=== PATIENT | female | born 1970 | race Caucasian/White ===

== ENCOUNTER → 2017-11-30 | Outpatient (REF) ==
[~2017-11-30] MED LIST: ALBU8.5H IH; AZIT-1 PO; CHOL500016 PO; FLUT16SP19 NS; GUAI600T57 PO; HYDR1CAP PO; HYDR5SYR2 PO; MULT-1121 PO; PROM5SYR PO; PSEU120T9 PO; VITA150T2 PO
[2017-11-30 12:27] LABS: LDL CHOLESTEROL 91 mg/dl
== END ==
DX: Z02.9 Encounter for administrative examinations, unspecified (principal)

== ENCOUNTER → 2017-12-11 | Outpatient (CLI) | payer OTHER ==
--- NOTE | 2017-12-12 11:45 | RADIOLOGY IMAGING REPORT ---
FACILITY: [facility] PATIENT NAME: CHAI EVANGELISTA : [id number] MR: [id number] V: [id number] EXAM DATE: ORDERING PHYSICIAN: MARIS MENDENHALL TECHNOLOGIST: Iwona Steen PROCEDURE:BILATERAL DIGITAL SCREENING MAMMOGRAM WITH CAD ASSISTED INTERPRETATION & 3D TOMOSYNTHESIS COMPARISON:Prior mammograms 01/09/17, 11/30/16, 11/30/15, 07/30/14. INDICATIONS:SCREENING FINDINGS: Mildly heterogeneous fibroglandular tissue is seen throughout the breasts. The parenchymal pattern has remained stable allowing for difference in mammographic technique & patient positioning. There is no evidence of malignant appearing mass, malignant appearing calcifications or other secondary sign of malignancy in either breast. DIAGNOSTIC CATEGORY 1--NEGATIVE. RECOMMENDATIONS: ROUTINE MAMMOGRAM AND CLINICAL EVALUATION. IMPRESSION: BIRADS 1: Negative No significant abnormality is seen. Dictated by: Salome Marcos M.D. on 12/11/2017 at 10:53 Transcribed by: LILLIE on 12/11/2017 at 11:22 Approved by: Salome Marcos M.D. on 12/12/2017 at 11:44 [facility]
== END ==
LOC: MAMO 00:25
PROVIDERS: ATTEND Obstetrics & Gynecology
DX: Z12.31 Encounter for screening mammogram for malignant neoplasm of breast (principal)
CPT/HCPCS: 77063; 77067

== ENCOUNTER → 2017-12-26 | Outpatient (CLI) | payer OTHER | LOC: LAB 18:09 | PROVIDERS: ATTEND Obstetrics & Gynecology | DX: R30.0 Dysuria (principal); R35.0 Frequency of micturition; R10.2 Pelvic and perineal pain; R82.99 Other abnormal findings in urine | CPT/HCPCS: 81001; 87088 ==

== ENCOUNTER → 2018-11-09 | Outpatient (REF) ==
[2018-11-09 11:53] LABS: LDL CHOLESTEROL 77 mg/dl
== END ==
DX: Z02.9 Encounter for administrative examinations, unspecified (principal)

== ENCOUNTER → 2018-12-10 | Outpatient (REF) | payer OTHER | LOC: ZZSENDIN 11:02 | PROVIDERS: ATTEND Obstetrics & Gynecology | DX: N39.0 Urinary tract infection, site not specified (principal) | CPT/HCPCS: 87088 ==

== ENCOUNTER → 2019-01-17 | Outpatient (CLI) | payer OTHER ==
--- NOTE | 2019-01-20 14:05 | RADIOLOGY IMAGING REPORT ---
[place] [facility] [place] NAME: CHAI EVANGELISTA : [id number] MR: [id number] V: [id number] EXAM DATE: ORDERING PHYSICIAN: MARIS MENDENHALL TECHNOLOGIST: Iwona Steen PROCEDURE: BILATERAL DIGITAL SCREENING MAMMOGRAM WITH CAD ASSISTED INTERPRETATION & 3D TOMOSYNTHESIS REASON FOR STUDY: Screening. FAMILY HISTORY OF BREAST CANCER: None. BREAST PROCEDURES/TREATMENTS: None. COMPARISON: 12/11/17, 01/09/17, 11/30/16, 11/30/15, 07/30/14. VIEWS OBTAINED: 2D & 3D full field CC & MLO. BREAST DENSITY: There are scattered areas of fibroglandular density throughout the breasts. MAMMOGRAM FINDINGS: Most of the parenchymal pattern has remained stable allowing for difference in mammographic technique & patient positioning. In the upper portion of the Right breast on the Right MLO view in the posterior depth there is a rounded nodular area not appreciated on the prior mammograms. A Right XCC view and Right breast Ultrasound recommended for further evaluation. IMPRESSION: BIRADS 0: Incomplete. A Right XCC view and a Right breast Ultrasound recommended for further evaluation. DIAGNOSTIC CATEGORY 0--INCOMPLETE: NEED ADDITIONAL IMAGING EVALUATION. RECOMMENDATIONS: ADDITIONAL MAMMOGRAPHIC VIEWS REQUIRED: RIGHT BREAST. ULTRASOUND: RIGHT BREAST. Dictated by: Salome Marcos M.D. on 01/20/2019 at 10:10 Transcribed by: LILLIE on 01/20/2019 at 10:50 Approved by: Salome Marcos M.D. on 01/20/2019 at 14:04 [facility]
== END ==
LOC: MAMO 15:22
PROVIDERS: ATTEND Obstetrics & Gynecology
DX: R92.2 Inconclusive mammogram (principal)
CPT/HCPCS: 77063; 77067

== ENCOUNTER → 2019-01-22 | Outpatient (CLI) | payer OTHER ==
--- NOTE | 2019-01-23 10:49 | RADIOLOGY IMAGING REPORT ---
[place] [facility] [place] NAME: CHAI EVANGELISTA : [id number] MR: [id number] V: [id number] EXAM DATE: ORDERING PHYSICIAN: MARIS MENDENHALL TECHNOLOGIST: Delia Hair RT(R)(CT) PROCEDURE:RIGHT DIGITAL MAMMOGRAM DIAGNOSTIC WITH CAD ASSISTED INTERPRETATION & 3D TOMOSYNTHESIS REASON FOR STUDY: Further evaluation FAMILY HISTORY OF BREAST CANCER: None BREAST PROCEDURES/TREATMENTS: None COMPARISON STUDIES: 12/11/17, 01/09/17, 11/30/16, 11/30/15, 07/30/14, 01/17/19 MAMMOGRAM VIEWS OBTAINED: Bilateral 2D & 3D full field Right XCC view BREAST DENSITY: There are scattered areas of fibroglandular density throughout the breasts. MAMMOGRAM FINDINGS: The small nodular density seen in the far posterior upper portion Right breast on the recent MLO view could not be identified on the Right XCC view. The Right breast Ultrasound was performed. ULTRASOUND AREA SCANNED: 10-12 position Right breast ULTRASOUND FINDINGS: There is a small fatty replaced lymph node in the 10 o'clock position Right breast 7cm from the nipple measuring 8mm in greatest dimension. In the 11 o'clock position of the Right breast 7cm from the nipple there is a small 3mm cyst. This may account for the mammographic findings. DIAGNOSTIC CATEGORY 2--BENIGN FINDING. RECOMMENDATIONS: ROUTINE MAMMOGRAM AND CLINICAL EVALUATION. IMPRESSION: BIRADS 2: Benign finding. Dictated by: Salome Marcos M.D. on 01/22/2019 at 16:13 [facility] Approved by: Salome Marcos M.D. on 01/23/2019 at 10:48
--- NOTE | 2019-01-23 10:49 | RADIOLOGY IMAGING REPORT ---
FACILITY: [facility] PATIENT NAME: CHAI EVANGELISTA : [id number] MR: [id number] V: [id number] EXAM DATE: ORDERING PHYSICIAN: MARIS MENDENHALL TECHNOLOGIST: Iwona Steen PROCEDURE:RIGHT DIGITAL MAMMOGRAM DIAGNOSTIC WITH CAD ASSISTED INTERPRETATION & 3D TOMOSYNTHESIS REASON FOR STUDY: Further evaluation FAMILY HISTORY OF BREAST CANCER: None BREAST PROCEDURES/TREATMENTS: None COMPARISON STUDIES: 12/11/17, 01/09/17, 11/30/16, 11/30/15, 07/30/14, 01/17/19 MAMMOGRAM VIEWS OBTAINED: Bilateral 2D & 3D full field Right XCC view BREAST DENSITY: There are scattered areas of fibroglandular density throughout the breasts. MAMMOGRAM FINDINGS: The small nodular density seen in the far posterior upper portion Right breast on the recent MLO view could not be identified on the Right XCC view. The Right breast Ultrasound was performed. ULTRASOUND AREA SCANNED: 10-12 position Right breast ULTRASOUND FINDINGS: There is a small fatty replaced lymph node in the 10 o'clock position Right breast 7cm from the nipple measuring 8mm in greatest dimension. In the 11 o'clock position of the Right breast 7cm from the nipple there is a small 3mm cyst. This may account for the mammographic findings. DIAGNOSTIC CATEGORY 2--BENIGN FINDING. RECOMMENDATIONS: ROUTINE MAMMOGRAM AND CLINICAL EVALUATION. IMPRESSION: BIRADS 2: Benign finding. Dictated by: Salome Marcos M.D. on 01/22/2019 at 16:13 Transcribed by: DANIEL on 01/23/2019 at 8:58 Approved by: Salome Marcos M.D. on 01/23/2019 at 10:48 [facility]
== END ==
LOC: MAMO 13:24
PROVIDERS: ATTEND Obstetrics & Gynecology
DX: N60.01 Solitary cyst of right breast (principal)
CPT/HCPCS: 77061; 77065

== ENCOUNTER 2019-02-09 23:42 | Inpatient (IN) | payer OTHER ==
[~2019-02-09] VITALS: Ht 167.6 cm; Wt 72.6 kg
[2019-02-09] MEDS ORDERED: NS(*) 0.9% 1000 ML BAG 1,000 ML IV ONE ×2 (23:45→23:55)
[2019-02-09] MEDS ORDERED: ONDANSETRON 4 MG/2 ML VIAL IVP ONE (23:45)
[2019-02-09 23:53] LABS: PLATELET COUNT, AUTOMATED 398 K/uL (150-450)
--- NOTE | 2019-02-09 23:54 | ER Report ---
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 PT became near syncopal and rapid response was called. Pt c/o of epigastriac pain, nausea, vomiting and tingling to hands and feet. Pt denies chest pain. Pt statse she had a normal bm earlier today. Pt has hx of multiple abd surgeries in the past. REVIEW OF SYSTEMS: Constitutional: No fever, no chills. Eyes: No discharge. ENT: No sore throat. Cardiovascular: No chest pain, no palpitations. Respiratory: No cough, no shortness of breath. Gastrointestinal: + abdominal pain, +nausea, + vomiting. Genitourinary: No hematuria. Musculoskeletal: No back pain. Skin: No rashes. Neurological: No headache, + tingling to hands and feet b/l Allergies: Coded Allergies: clindamycin (Verified Allergy, Intermediate, MOUTH SWELLING, 08/07/17) Home Meds Reported Medications Multivitamin With Minerals (DAILY VITAMIN FORMULA-MINERALS) 1 Each Tablet, 1 TAB PO 10/05/17 Vitamin B Complex & Vit C No.4 (SUPER B COMPLEX) 150 Mg Tablet, 1 TAB PO DAILY 10/05/17 Cholecalciferol (Vitamin D3) (VITAMIN D3) 5,000 Unit Capsule, 1 CAPSULE PO DAILY, CAPSULE 10/05/17 Past Medical/Surgical History Pmhx: cva uti Pshx: bladder suspension, hysterectomy, rolando, tonsilectomy Reviewed Nurses Notes: Yes Old Medical Records Reviewed: Yes Smoking Status: Never Smoker Hx Alcohol Use: Yes (one a week) Constitutional Vital Sign - Last 24 Hours 02/09/19 23:46 Temp 98.6 Pulse 81 Resp 16 B/P (MAP) 106/73 Pulse Ox 95 O2 Delivery Room Air Physical Exam General Appearance: The patient is alert, has no immediate need for airway protection, + clammy Eyes: Pupils equal and round no pallor or injection, EOMI ENT: no pharyngeal erythema or exudates, Mucous membranes are moist Respiratory: There are no retractions, lungs are clear to auscultation. Cardiovascular: Regular rate and rhythm. pulses are equal and symmetrical Gastrointestinal: Abdomen is soft with epigastric tenderness, no masses, bowel sounds decreased, no guarding, no rigidity or rebound Neurological: Cranial nerves II-XII grossly intact, no sensory or motor loss Skin: Warm and dry, no rashes. Musculoskeletal: Neck is supple non tender, no vertebral tenderness Extremities are non tender, non swollen and have full range of motion. DIFFERENTIAL DIAGNOSIS: After history and physical exam differential diagnosis was considered for gastroenteritis, sbo, psbo, perforation, vasovagal syncope, pancreatitis Medical Decision Making Data Points Result Diagram: 02/09/193 02/09/19 2333 Laboratory Hematology Test 02/09/19 23:33 Red Blood Count 5.98 M/uL (4.17-5.56) Mean Corpuscular Volume 82.3 fL (80.0-96.0) Mean Corpuscular Hemoglobin 28.1 pg (26.0-33.0) Mean Corpuscular Hemoglobin Concent 34.2 g/dL (32.0-36.0) Red Cell Distribution Width 13.7 % (11.5-14.5) Mean Platelet Volume 6.5 fL (7.2-11.1) Neutrophils (%) (Auto) 53.3 % (39.4-72.5) Lymphocytes (%) (Auto) 38.1 % (17.6-49.6) Monocytes (%) (Auto) 5.5 % (4.1-12.4) Eosinophils (%) (Auto) 2.4 % (0.4-6.7) Basophils (%) (Auto) 0.7 % (0.3-1.4) Nucleated RBC Relative Count (auto) 0.1 /100WBC Neutrophils # (Auto) 5.4 K/uL (2.0-7.4) Lymphocytes # (Auto) 3.8 K/uL (1.3-3.6) Monocytes # (Auto) 0.5 K/uL (0.3-1.0) Eosinophils # (Auto) 0.2 K/uL (0.0-0.5) Basophils # (Auto) 0.1 K/uL (0.0-0.1) Nucleated RBC Absolute Count (auto) 0.01 K/uL Sodium Level 142 mmol/L (137-145) Potassium Level 3.5 mmol/L (3.5-5.0) Chloride Level 105 mmol/L (98-107) Carbon Dioxide Level 19 mmol/L (22-31) Blood Urea Nitrogen 16 mg/dl (7-18) Creatinine 0.80 mg/dl (0.52-1.04) Glomerular Filtration Rate Calc > 60.0 Random Glucose 107 mg/dl (75-110) Calcium Level 9.7 mg/dl (8.4-10.2) Total Bilirubin 0.7 mg/dl (0.2-1.3) Aspartate Amino Transf (AST/SGOT) 49 U/L (0-35) Alanine Aminotransferase (ALT/SGPT) 49 U/L (0-56) Alkaline Phosphatase 73 U/L (0-126) Troponin I < 0.012 ng/ml Total Protein 7.9 g/dl (6.3-8.2) Albumin 4.8 g/dl (3.5-5.0) Lipase 5668 U/L (23-300) Helicobacter pylori IgG Antibody Negative (NEGATIVE) Chemistry Test 02/09/19 23:33 White Blood Count 10.0 k/uL (4.5-11.0) Red Blood Count 5.98 M/uL (4.17-5.56) Hemoglobin 16.8 g/dL (12.0-16.0) Hematocrit 49.2 % (34.0-47.0) Mean Corpuscular Volume 82.3 fL (80.0-96.0) Mean Corpuscular Hemoglobin 28.1 pg (26.0-33.0) Mean Corpuscular Hemoglobin Concent 34.2 g/dL (32.0-36.0) Red Cell Distribution Width 13.7 % (11.5-14.5) Platelet Count 398 K/uL (150-450) Mean Platelet Volume 6.5 fL (7.2-11.1) Neutrophils (%) (Auto) 53.3 % (39.4-72.5) Lymphocytes (%) (Auto) 38.1 % (17.6-49.6) Monocytes (%) (Auto) 5.5 % (4.1-12.4) Eosinophils (%) (Auto) 2.4 % (0.4-6.7) Basophils (%) (Auto) 0.7 % (0.3-1.4) Nucleated RBC Relative Count (auto) 0.1 /100WBC Neutrophils # (Auto) 5.4 K/uL (2.0-7.4) Lymphocytes # (Auto) 3.8 K/uL (1.3-3.6) Monocytes # (Auto) 0.5 K/uL (0.3-1.0) Eosinophils # (Auto) 0.2 K/uL (0.0-0.5) Basophils # (Auto) 0.1 K/uL (0.0-0.1) Nucleated RBC Absolute Count (auto) 0.01 K/uL Glomerular Filtration Rate Calc > 60.0 Calcium Level 9.7 mg/dl (8.4-10.2) Total Bilirubin 0.7 mg/dl (0.2-1.3) Aspartate Amino Transf (AST/SGOT) 49 U/L (0-35) Alanine Aminotransferase (ALT/SGPT) 49 U/L (0-56) Alkaline Phosphatase 73 U/L (0-126) Troponin I < 0.012 ng/ml Total Protein 7.9 g/dl (6.3-8.2) Albumin 4.8 g/dl (3.5-5.0) Lipase 5668 U/L (23-300) Helicobacter pylori IgG Antibody Negative (NEGATIVE) EKG/Imaging EKG Interpretation Sinus arrhythmia @ 80 with intermitent junctional rhythm ED Course/Re-evaluation Clinical Indication for ER IV: Hydration, IV Access ED Course 02/10/2019 1:09:00 am Pts labs show pancreatitis. On ct pancreas appears normal but pt has signs of enteritis. Pt looks more comfortable. Fentany took away her pain but pt did have hives form after she was given zofran and f entanyl. Treated hives with benadryl. 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 Will speak with hospitalist for admission and supervisor statement clerks for pts floor requestion. 02/10/2019 1:19:19 am Spoke with Hospitalist who accepts pt and supervisor statement clerks working on bed request. Decision to Disposition Date: Feb 10, 2019 Decision to Disposition Time: 01:10 Depart Departure Latest Vital Signs Vital Signs Date Time Temp Pulse Resp B/P (MAP) Pulse Ox O2 Delivery O2 Flow Rate FiO2 02/09/19 23:46 98.6 81 16 106/73 95 Room Air Impression: Primary Impression: Pancreatitis Additional Impression: Enteritis Condition: Condition Unchanged Disposition: Admitted from ER Referrals: MARIS MENDENHALL MD (PCP) Problem Qualifiers Primary Impression: Pancreatitis Chronicity: acute Pancreatitis type: unspecified pancreatitis type Acute pancreatitis complication: no infection or necrosis Qualified Codes: K85.90 - Acute pancreatitis without necrosis or infection, unspecified RENA FRANCES DO Feb 09, 2019 23:54
[2019-02-09] MEDS ORDERED: fentaNYL CITR 100 MCG/2 ML AMP IVP ONE (23:55)
[2019-02-09] MEDS ORDERED: IOPAMIDOL 76% 100 ML INFUS BTL 100 ML ONE (23:58)
[2019-02-10] MEDS ORDERED: diphenhydrAMINE 50 MG/ML VIAL IVP ONE (00:10)
--- NOTE | 2019-02-10 00:39 | EKG ---
FACILITY: [facility] [place] PATIENT NAME: CHAI EVANGELISTA : [id number] MR: [id number] V: [id number] EXAM DATE: ORDERING PHYSICIAN: RENA FRANCES TECHNOLOGIST: EITAN Test Reason : SYNCOPE Blood Pressure : / mmHG Vent. Rate : 078 BPM Atrial Rate : 078 BPM P-R Int : 136 ms QRS Dur : 094 ms QT Int : 410 ms P-R-T Axes : 000 242 067 degrees QTc Int : 467 ms Sinus rhythm with marked sinus arrhythmia Otherwise normal ECG No previous ECGs available Confirmed by Jaime Colby ([id number]) on 02/10/2019 6:35:44 AM Referred By: Confirmed By:Jaime Baez
--- NOTE | 2019-02-10 00:49 | RADIOLOGY IMAGING REPORT ---
[place] [facility] [place] NAME: Tatiana Ames : 1970 MR: [id number] V: [id number] EXAM DATE: [id number] ORDERING PHYSICIAN: RENA FRANCES TECHNOLOGIST: Location: [facility] Patient: Tatiana Ames : 1970 Visit/Account:[id number] Date of Sevice: 02/09/2019 CT ABDOMEN PELVIS W/ CON HISTORY:epigastric abd pain TECHNIQUE: CT abdomen and pelvis with intravenous contrast. Contiguous axial images of the abdomen and pelvis was performed from the lung bases to the symphysis pubis. One of the following dose optimization techniques was utilized in the performance of this exam: Autom ated exposure control; adjustment of the mA and/or kV according to the patient's size; or use of an i terative reconstruction technique. Specific details can be referenced in the facility's radiology C T exam operational policy. CONTRAST: 75 cc of Isovue-370 COMPARISON: None. FINDINGS: Visualized lung bases: Negative. Hepatobiliary: Gallbladder is absent. Bile ducts are decompressed Spleen: Negative. Adrenals: Negative. Kidneys/: Negative. Pancreas: Negative. GI: There is marked thickening of the small bowel loops with mild dilation suggesting enteritis. No evidence for obstruction. Fluid is noted in the ascending colon but more solid stool is noted in the remainder of the colon. Appendix is normal. No free fluid or free air. Vessels/spaces/nodes: Negative. Bones/soft tissues: Negative. IMPRESSION: 1. Significant thickening of the small bowel loops with mild dilation suggesting enteritis. No defin ite bowel obstruction, free fluid or free air. 2. Liquid stool is noted in the ascending colon suggesting diarrhea. Report Dictated By: Ez Us MD at 02/10/2019 12:35 AM Report E-Signed By: Ez Us MD at 02/10/2019 12:43 AM WSN:[id number]
--- NOTE | 2019-02-10 01:34 | EKG ---
FACILITY: PATIENT NAME: CHAI EVANGELISTA : [id number] MR: [id number] V: [id number] EXAM DATE: ORDERING PHYSICIAN: RENA FRANCES TECHNOLOGIST: EITAN Test Reason : SYNCOPE Blood Pressure : / mmHG Vent. Rate : 097 BPM Atrial Rate : 097 BPM P-R Int : 156 ms QRS Dur : 086 ms QT Int : 358 ms P-R-T Axes : 072 244 068 degrees QTc Int : 454 ms Normal sinus rhythm Normal ECG When compared with ECG of 09-FEB-2019 23:49, No significant change was found Confirmed by Jaime Colby ([id number]) on 02/10/2019 6:35:54 AM Referred By: Confirmed By:Jaime Baez
[2019-02-10] MEDS ORDERED: NALOXONE HCL 0.4 MG/ML VIAL IVP PRN (02:05)
[2019-02-10] MEDS ORDERED: FLUSH 10 ML SYR IVP PRN (02:05)
[2019-02-10] MEDS ORDERED: PROMETHAZINE 25 MG/ML 1 ML AMP IVP PRN (02:05)
[2019-02-10] MEDS ORDERED: THYR90TA13 PO (02:16)
--- NOTE | 2019-02-10 02:28 | History & Physical ---
History of Present Illness Chief Complaint n/v/abdominal pain History of Present Illness 48F presented with acute onset nausea, vomiting, abdominal pain. PMHx significant for cholecystectomy, hypothyroid. 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 Reported she needed to lie down and had sudden onset of n/v near syncopal episode. Rapid response was called and she was transported to ER. There reported epigastric pain and tenderness as well as continued nausea. Troponin negative, EKG without acute changes. CT showed possible enteritis but otherwise negative, lipase 5900. She was admitted for further management. Reports 1-2 drinks per month, previous cholecystectomy 2009, no fever, chills, nausea before episode tonight. History Problems: (1) Hypothyroid Home Meds Reported Medications Multivitamin With Minerals (DAILY VITAMIN FORMULA-MINERALS) 1 Each Tablet, 1 TAB PO 10/05/17 Vitamin B Complex & Vit C No.4 (SUPER B COMPLEX) 150 Mg Tablet, 1 TAB PO DAILY 10/05/17 Cholecalciferol (Vitamin D3) (VITAMIN D3) 5,000 Unit Capsule, 1 CAPSULE PO DAILY, CAPSULE 10/05/17 Allergies: Coded Allergies: clindamycin (Verified Allergy, Intermediate, MOUTH SWELLING, 08/07/17) Patient History: FH: brain cancer PATERNAL GRANDFATHER FH: depression BROTHER OR SISTER FH: hypertension FATHER, Age:77 MOTHER, Age:76 FH: lung cancer PATERNAL GRANDFATHER FH: myocardial infarction MATERNAL GRANDFATHER FH: renal failure FATHER, Age:77 Graves' disease MOTHER, Age:76 Sanya thyroiditis BROTHER OR SISTER Smoking Status: Never Smoker Hx Alcohol Use: Yes (one a week) Social Drug Use: Never Review of Systems All Systems Reviewed/Normal: Yes, Except as Noted Constitutional: No Fever Neurological: No Confusion, No Weakness Cardiovascular: No Chest Pain Gastrointestinal: Nausea, Vomiting, Abdominal Pain Exam Vital Signs Vital Signs Date Time Temp Pulse Resp B/P (MAP) Pulse Ox O2 Delivery O2 Flow Rate FiO2 02/10/19 00:42 109 25 97 02/10/19 00:30 107/77 (87) 02/09/19 23:46 98.6 Room Air General Appearance: Alert, Awake, No Acute Distress, Afebrile Neuro: No Gross deficits Cardiovascular: Normal Rhythm & Peripheral Pulses Respiratory: No Respiratory Distress GI: Other (epigastric tenderness, + BS ) Extremities: Soft and Non Tender, Warm, Pulses, Perfused Medical Decision Making Data Points Result Diagram: 02/09/19 2333 02/09/19 2333 EKG / Imaging EKG Interpretation NSR Assessment and Plan Problems: (1) Pancreatitis Status: Acute Assessment & Plan: Unclear etiology, previous cholecystectomy, minimal EtOH. Will get US to examine ducts for retained stone, lipids WNL in . Begin LR IV for hydration, PRN IV Dilaudid, Zofran and Promethazine for nausea. NPO with chips and sips. (2) Enteritis Status: Acute Assessment & Plan: Believed to be related to pancreatic inflammation, reports 3 formed stools day of admission (normal is 2). Will monitor and adjust therapy as needed. (3) Hypothyroid Assessment & Plan: She is on armor thyroid, will hold one day and evaluate ability to take PO. Venous Thromboembolism Antithrombotics Is Pt On Any Antithrombotics?: No (early ambulation) Exam Sepsis Risk: No Definite Risk Problem Qualifiers (1) Pancreatitis: Chronicity: acute Pancreatitis type: unspecified pancreatitis type Acute pancreatitis complication: no infection or necrosis Qualified Codes: K85.90 - Acute pancreatitis without necrosis or infection, unspecified MIGUELITO MENA DO Feb 10, 2019 02:28
[2019-02-10] MEDS: LR(*) 1000 ML BAG 1,000 ML IV PRN ×4 (02:44→23:58)
[2019-02-10 02:45] VITALS: BP 120/79
[2019-02-10] MEDS: ONDANSETRON 4 MG/2 ML VIAL IVP PRN ×2 (02:45→21:15)
[2019-02-10] MEDS: HYDROmorphone HCL 2 MG/ML SDV IVP PRN ×4 (02:46→21:09)
--- NOTE | 2019-02-10 10:24 | RADIOLOGY IMAGING REPORT ---
FACILITY: [facility] PATIENT NAME: Tatiana Ames : 1970 MR: [id number] V: [id number] EXAM DATE: ORDERING PHYSICIAN: MIGUELITO FAJARDO TECHNOLOGIST: Location: [facility] Patient: Tatiana Ames : 1970 Visit/Account:[id number] Date of Sevice: 02/10/2019 LIVER HISTORY: ELEVATED LIPASE COMPARISON: CT abdomen and pelvis February 09, 2019 FINDINGS: Gallbladder: Surgically absent Liver: Negative. Common duct: Minimally dilated, six mm diameter. Pancreas: The pancreas is partially obscured by bowel gas. The pancreas appears very prominent altho ugh peripancreatic fluid is not seen Right kidney: Right kidney appears unremarkable measuring 11.2 cm in length Upper abdominal aorta and IVC: Patent. Ascites: None visualized. IMPRESSION: Post surgical changes from a cholecystectomy Common bile duct is mildly dilated at 6 mm Pancreas appears prominent which could be related to pancreatitis as the clinical history suggests Report Dictated By: Salome Marcos MD at 02/10/2019 10:15 AM Report E-Signed By: Salome Marcos MD at 02/10/2019 10:18 AM WSN:[email or web address]
[2019-02-10 10:40] VITALS: BP 118/74
--- NOTE | 2019-02-10 10:56 | Hospitalist Progress Note ---
Subjective Progress Notes Subjective She was admitted with acute pancreatitis. She denies N/V/D. She still has some epigastric tenderness. Patient Complains of: Cardiovascular: No: Chest Pain Respiratory: No: Shortness of Breath Gastrointestinal: Other (abd pain) Physical Exam Vital Signs Date Time Temp Pulse Resp B/P (MAP) Pulse Ox O2 Delivery O2 Flow Rate FiO2 02/10/19 02:55 87 02/10/19 02:45 98.0 102 14 120/79 (93) Nasal Cannula 2.0 Intake and Output 02/10/19 01:02 Intake Total 1000 ml Balance 1000 ml Intake IV Total 1000 ml General Appearance: Alert, Awake, No Acute Distress, Afebrile Neuro: No Gross deficits Cardiovascular: Regular Rate and Rhythm Respiratory: No Respiratory Distress, Clear to Auscultation GI: Other (epigastric pain, soft to palpation) Extremities: Warm, Perfused; No Edema Psych: Alert & Oriented X3, Appropriate Mood & Affect Result Diagram: 02/09/19 2333 02/09/19 2333 Assessment and Plan Problems: (1) Pancreatitis Status: Acute Assessment & Plan: Unclear etiology, previous cholecystectomy, minimal EtOH. Will get US to examine ducts for retained stone, lipids WNL in . Begin LR IV for hydration, PRN IV Dilaudid, Zofran and Promethazine for nausea. NPO with chips and sips. (2) Enteritis Status: Acute Assessment & Plan: Believed to be related to pancreatic inflammation, reports 3 formed stools day of admission (normal is 2). Will monitor and adjust therapy as needed. (3) Hypothyroid Assessment & Plan: She is on armor thyroid, will hold one day and evaluate ability to take PO. Exam Sepsis Risk: No Definite Risk Problem Qualifiers (1) Pancreatitis: Chronicity: acute Pancreatitis type: unspecified pancreatitis type Acute pancreatitis complication: no infection or necrosis Qualified Codes: K85.90 - Acute pancreatitis without necrosis or infection, unspecified PHILIP OSORIOP Feb 10, 2019 10:56
[2019-02-10 15:10] VITALS: BP 93/57
[2019-02-10] MEDS ORDERED: ACETAMINOPHEN(*)1000 MG/100 ML 100 ML IVPB PRN (15:20)
--- NOTE | 2019-02-10 15:30 | Medical Nutrition Therapy ---
Nutrition Anthropometrics Height (Inches): 66.00 Height (Calculated Centimeters: 167.967171 Weight (Pounds): 160 (stated wt) Weight (Calculated Kilograms): 72.575 BMI: 25.8 Daniel Nutrition Score: Adequate Daniel Nutrition Risk Score: 22 Dietary Referral Nutrition Risk Factors: Nutrition Risk Comment: Nutritional Diagnosis Nutritional Risk Acuity 2: Pancreatitis Nutritional Risk Acuity 3: Nausea Nutritional Acuity: 2-Moderate Nutrition Diagnosis: Increased Nutrient Needs Nutrition Etiology: Psychological Issues Nutrition Problem/Etiology/Sym: AEB dx pncreatitis with lipase 5668 Energy Requirement: 1800 (MSJ) Protein Requirement: 79 (1.1gm/kg) Fluid Requirement: 2160 (3ml/kg) Diet Type: NPO (Nothing by Mouth) Nutrition Intervention: Incr diet as tolerated Nutrition Monitoring & Eval Nutrition Goals: Eat 75-100% Meal, Drink > 2 liters/day RD Patient Assessment Time: [address] Assessment Type: RD Assessment Patient Nutrition Acuity: 2-Moderate Follow Up Date: Feb 13, 2019 Nutritional Comment: 7/ Pt admitted with pancretits. Lipase 5668, alb 4.8. pt reporting N/V. pt curretnly NPO. Will cont to monitor. RICK GOLD Feb 10, 2019 15:30
[2019-02-10 18:21] VITALS: BP 113/58
[2019-02-10 20:14] VITALS: BP 150/84
[2019-02-10 22:00] VITALS: BP 124/80
[2019-02-11] VITALS (7 sets, daily range): BP systolic 101–133; BP diastolic 1–88
[2019-02-11 05:28] LABS: PLATELET COUNT, AUTOMATED 218 K/uL (150-450)
[2019-02-11] MEDS: LR(*) 1000 ML BAG 1,000 ML IV PRN (07:39)
[2019-02-11] MEDS: IBUPROFEN 600 MG TAB PO PRN ×2 (13:09→20:23)
--- NOTE | 2019-02-11 15:06 | Hospitalist Progress Note ---
Subjective Progress Notes Subjective Patient reports improvement in pain, she denies N/V. Patient Complains of: Cardiovascular: No: Chest Pain Respiratory: No: Shortness of Breath Physical Exam Vital Signs Date Time Temp Pulse Resp B/P (MAP) Pulse Ox O2 Delivery O2 Flow Rate FiO2 02/11/19 05:37 82 16 112/68 (83) 96 Nasal Cannula 0.5 02/11/19 02:01 98.1 General Appearance: Alert, Awake, No Acute Distress, Afebrile Neuro: No Gross deficits Cardiovascular: Regular Rate and Rhythm Respiratory: No Respiratory Distress, Clear to Auscultation GI: Soft and Non-Tender Extremities: Warm, Perfused; No Edema Psych: Alert & Oriented X3, Appropriate Mood & Affect Result Diagram: 02/11/1951602/11/19516 Assessment and Plan Problems: (1) Pancreatitis Status: Acute Assessment & Plan: Unclear etiology, previous cholecystectomy, minimal EtOH. US shows no stone, but does show some bile duct dilation, lipids WNL. She was placed on LR IV for hydration, PRN IV Dilaudid, Zofran and Promethazine for nausea. Advanced diet from clears this morning to Low Fat diet. Will have pond tender see patient for education for low fat diet. (2) Enteritis Status: Acute Assessment & Plan: Believed to be related to pancreatic inflammation, reports 3 formed stools day of admission (normal is 2). Will monitor and adjust therapy as needed. (3) Hypothyroid Assessment & Plan: She is on armor thyroid, held one day and will now resume. Exam Sepsis Risk: No Definite Risk Problem Qualifiers (1) Pancreatitis: Chronicity: acute Pancreatitis type: unspecified pancreatitis type Acute pancreatitis complication: no infection or necrosis Qualified Codes: K85.90 - Acute pancreatitis without necrosis or infection, unspecified PHILIP OSROIO SPECIAL EDUCATION DIRECTOR Feb 11, 2019 15:06
[2019-02-11] MEDS ORDERED: THYROID PORK 90 MG PO SCH (18:00)
[2019-02-12] MEDS: IBUPROFEN 600 MG TAB PO PRN ×2 (03:06→10:15)
[2019-02-12 03:30] VITALS: BP_SYST 111
[2019-02-12 06:18] LABS: PLATELET COUNT, AUTOMATED 263 K/uL (150-450)
[2019-02-12 09:14] VITALS: BP 124/92
[2019-02-12 13:30] VITALS: BP 126/96
--- NOTE | 2019-02-12 15:01 | Hospitalist Depart ---
Discharge Summary Reason for Hosp/Final Diag: (1) Pancreatitis Status: Acute Hospital Course & Plan: She presented with acute onset of epigastric pain and vomiting. Lipase was 5668 and normalized the next day. No CT evidence of pancreatitis. Unclear etiology, previous cholecystectomy, minimal EtOH. US shows no stone, but does show some mild bile duct dilation, lipids WNL. She was placed on LR IV for hydration, PRN IV Dilaudid, Zofran and Promethazine for nausea. Advanced diet from clears to Low Fat diet. Doing well and ready to go home. She might benefit from a follow up with a GI specialist to see if further evaluation should be done. (2) Enteritis Status: Acute Hospital Course & Plan: On CT, there was thickening of the small bowel loops with mild dilation believed to be related to pancreatic inflammation. She had a one more BM than normal the day of admission. (3) Hypothyroid Hospital Course & Plan: She is on armor thyroid, held one day and will now resume. Departure Weight (Pounds): 160 (stated wt) Result Diagram: 02/12/1955802/12/19558 Item Value Date Time Lipase 5668 U/L H 02/09/192332 Lipase 105 U/L 02/11/19516 Triglycerides Level 64 mg/dl 02/11/19516 Calcium Level 9.7 mg/dl 02/09/192332 Calcium Level 7.9 mg/dl L 02/11/19516 Calcium Level 8.7 mg/dl 02/12/19558 Aspartate Amino Transf (AST/SGOT) 49 U/L H 02/09/192332 Aspartate Amino Transf (AST/SGOT) 36 U/L H 02/11/19516 Aspartate Amino Transf (AST/SGOT) 30 U/L 02/12/19558 Alanine Aminotransferase (ALT/SGPT) 53 U/L 02/12/19558 Alkaline Phosphatase 59 U/L 02/11/19516 Alanine Aminotransferase (ALT/SGPT) 55 U/L 02/11/19516 Alkaline Phosphatase 64 U/L 02/12/19558 Alkaline Phosphatase 73 U/L 02/09/192332 Alanine Aminotransferase (ALT/SGPT) 49 U/L 02/09/192332 Troponin I < 0.012 ng/ml 02/09/192332 Sodium Level 142 mmol/L 02/09/192332 Potassium Level 3.5 mmol/L 02/09/192332 Chloride Level 105 mmol/L 02/09/192332 Carbon Dioxide Level 19 mmol/L L 02/09/192332 Blood Urea Nitrogen 16 mg/dl 02/09/192332 Creatinine 0.80 mg/dl 02/09/192332 Glomerular Filtration Rate Calc > 60.0 02/09/192332 Glomerular Filtration Rate Calc > 60.0 02/11/1917 Blood Urea Nitrogen 13 mg/dl 02/11/19 0517 Creatinine 0.70 mg/dl 02/11/19 0517 Carbon Dioxide Level 22 mmol/L 02/11/19 0517 Carbon Dioxide Level 27 mmol/L 02/12/19 0559 Blood Urea Nitrogen 9 mg/dl 02/12/19 0559 Creatinine 0.70 mg/dl 02/12/19 0559 Glomerular Filtration Rate Calc > 60.0 02/12/19 0559 Random Glucose 123 mg/dl H 02/12/19 0559 Random Glucose 53 mg/dl L 02/11/19 0517 Lipase 111 U/L 02/12/19 0559 Hemoglobin 16.8 g/dL H 02/09/192332 Hemoglobin 12.3 g/dL 02/11/19 0517 Hemoglobin 14.1 g/dL 02/12/19 0559 Platelet Count 398 K/uL 02/09/192332 Platelet Count 218 K/uL 02/11/19 0517 Platelet Count 263 K/uL 02/12/19 0559 Neutrophils (%) (Auto) 53.3 % 02/09/192332 Neutrophils (%) (Auto) 36.7 % L 02/12/19 0559 Neutrophils (%) (Auto) 47.2 % 02/11/19 0517 Lymphocytes (%) (Auto) 38.1 % 02/09/192332 Lymphocytes (%) (Auto) 29.0 % 02/11/19 05 Lymphocytes (%) (Auto) 32.9 % 02/12/19 0559 White Blood Count 10.0 k/uL 02/09/192332 White Blood Count 8.4 k/uL 02/11/1917 White Blood Count 7.0 k/uL 02/12/19 0559 Helicobacter pylori IgG Antibody Negative 02/09/19 2333 Imaging 02/10/19 Liver US - Post surgical changes from a cholecystectomy Common bile duct is mildly dilated at 6 mm Pancreas appears prominent which could be related to pancreatitis as the clinical history suggests 02/09/19 Abd/Pelvis CT - 1. Significant thickening of the small bowel loops with mild dilation suggesting enteritis. No definite bowel obstruction, free fluid or free air. 2. Liquid stool is noted in the ascending colon suggesting diarrhea. Condition: Improved Discharge: Home Discharge Instructions Home Meds Reported Medications Thyroid,Pork (PNEUMATIC DRUM SANDER THYROID) 90 Mg Tablet, 90 MG PO DAILY 02/10/19 Multivitamin With Minerals (DAILY VITAMIN FORMULA-MINERALS) 1 Each Tablet, 1 TAB PO 10/05/17 Vitamin B Complex & Vit C No.4 (SUPER B COMPLEX) 150 Mg Tablet, 1 TAB PO DAILY 10/05/17 Cholecalciferol (Vitamin D3) (VITAMIN D3) 5,000 Unit Capsule, 1 CAPSULE PO DAILY, CAPSULE 10/05/17 Diet: Low Fat Activity: As Tolerated Special Instructions: Go to the ER for recurrence of pain, or nausea and vomiting. Follow up with a live study manager might be helpful in finding an etiology to the pancreatitis Copies to: MARIS MENDENHALL MD ; Venous Thromboembolism Antithrombotics Is Pt On Any Antithrombotics?: No (early ambulation) Problem Qualifiers (1) Pancreatitis: Chronicity: acute Pancreatitis type: unspecified pancreatitis type Acute pancreatitis complication: no infection or necrosis Qualified Codes: K85.90 - Acute pancreatitis without necrosis or infection, unspecified ALAN MACDONALD MD Feb 12, 2019 15:01
== END 2019-02-12 15:37 | disposition home or self-care (01) | DRG 440 ==
LOC: ER 02-10 00:10 → PED 02-10 01:39
PROVIDERS: ADMIT Internal Medicine; ATTEND Internal Medicine
DX: K85.90 Acute pancreatitis without necrosis or infection, unspecified (principal); K52.9 Noninfective gastroenteritis and colitis, unspecified; E03.9 Hypothyroidism, unspecified; Z90.49 Acquired absence of other specified parts of digestive tract; Z88.1 Allergy status to other antibiotic agents; Z90.710 Acquired absence of both cervix and uterus
CPT/HCPCS: 36415; 74177; 76705; 82040; 82247; 82310; 82374; 82435; 82465; 82565; 82947; 83690; 83718; 84075; 84132; 84155; 84295; 84450; 84460; 84478; 84484; 84520; 85025; 86677; 93005; 96361; 96374; 96375; 99285; J0131; J1170; J1200; J2405; J3010; J7030; J7120; Q9967

== ENCOUNTER → 2019-03-19 | Outpatient (CLI) | payer OTHER ==
[~2019-03-19] MED LIST changes: +THYR90TA13 PO
--- NOTE | 2019-03-19 15:31 | RADIOLOGY IMAGING REPORT ---
FACILITY: [facility] [place] PATIENT NAME: Tatiana Ames : 1970 MR: [id number] V: [id number] EXAM DATE: ORDERING PHYSICIAN: FARIDEH LIZAMA TECHNOLOGIST: Location: [facility] Patient: Tatiana Ames : 1970 Visit/Account:[id number] Date of Sevice: 03/19/2019 MR ABDOMEN MRCP W/O CONTRAST HISTORY: Pancreatitis, elevated lipase level, abdomen pain TECHNIQUE: Multiplanar multisequence magnetic resonance imaging of the abdomen without intravenous c ontrast including magnetic resonance cholangiopancreatography (MRCP). CONTRAST: None. COMPARISON: Liver ultrasound February 10, 2019 FINDINGS: Visualized lung bases: Grossly unremarkable. Liver: Negative. Gallbladder: Surgically absent Bile ducts: Nondilated Spleen: Negative. Adrenal glands: Negative. Pancreas: Negative. Kidneys: Negative. Vessels/spaces/nodes: No bulky adenopathy or ascites. Visualized GI: Grossly unremarkable. Bones/soft tissues: Unremarkable. IMPRESSION: Postsurgical changes from a cholecystectomy otherwise unremarkable MRCP without contrast Report Dictated By: Saloem Marcos MD at 03/19/2019 2:25 PM Report E-Signed By: Salome Marcos MD at 03/19/2019 3:23 PM WSN:[id number]
== END ==
LOC: MRI 01:50
PROVIDERS: ATTEND Nurse Practitioner Family
DX: R10.9 Unspecified abdominal pain (principal); K85.90 Acute pancreatitis without necrosis or infection, unspecified; R74.8 Abnormal levels of other serum enzymes
CPT/HCPCS: 74181

== ENCOUNTER 2019-04-03 02:51 | Day surgery (SDC) | payer OTHER ==
[~2019-04-03] VITALS: Ht 167.6 cm; Wt 70.3 kg
[2019-04-03] MEDS ORDERED: PROPOFOL EMUL(*) 10MG/ML 20 ML 40 ML ONE (07:36)
[2019-04-03] MEDS ORDERED: LIDOCAINE MPF 1% 5 ML VIAL ONE (07:36)
[2019-04-03 07:56] VITALS: BP 128/84
[2019-04-03] MEDS ORDERED: NORMOSOL R SOLN(*) 1000 ML BAG 1,000 ML IV PRN (08:00)
[2019-04-03] MEDS ORDERED: LIDOCAINE/SOD BICARB 8.4% SYR ID ONE (08:00)
[2019-04-03 09:23] VITALS: BP 93/53
[2019-04-03 09:45] VITALS: BP 99/62
[2019-04-03 10:00] VITALS: BP 99/74
[2019-04-03 10:15] VITALS: BP 102/69
[2019-04-03 11:00] VITALS: BP 107/76
== END 2019-04-03 11:11 | disposition home or self-care (01) ==
LOC: OR 02:51
PROVIDERS: ATTEND Internal Medicine Gastroenterology
DX: Z12.11 Encounter for screening for malignant neoplasm of colon (principal); Z83.71 Family history of colonic polyps; K63.5 Polyp of colon; K64.9 Unspecified hemorrhoids; K57.30 Diverticulosis of large intestine without perforation or abscess without bleeding
CPT/HCPCS: 00811; 45380; 88305; J2001; J2704